=== PATIENT | male | born 2005 | race Two or more races ===

== ENCOUNTER 2025-08-27 09:17 | Inpatient (IN) | payer OTHER ==
[~2025-08-27] VITALS: Ht 175.3 cm; Wt 86.0 kg
[2025-08-27] MEDS: ONDANSETRON HCL 4 MG/2 ML VIAL IV ONE (10:13)
[2025-08-27] MEDS: FAMOTIDINE (10MG/ML) 2ML VL IV ONE (10:13)
[2025-08-27] MEDS: MORPHINE SULFATE 4 MG/ML SYR/VIAL IV ONE (10:14)
[2025-08-27] MEDS: SODIUM CHLORIDE 0.9% 1,000 ML IV ONE (10:15)
[2025-08-27 10:26] LABS: Hematocrit 43.4 % (41.0-53.0); Hemoglobin 15.4 g/dL (13.5-17.5); Mean Corpuscular Hemoglobin 31.0 pg (28.0-32.0); Mean Corpuscular Volume 87.5 fL (80.0-100.0); Nucleated Red Blood Cells % 0.0 %
--- NOTE | 2025-08-27 10:33 | ED.PDOC ---
History of Present Illness HPI Comments 20-year-old male brought in by [facility] for the chief complaint of and abdominal pain. Patient originally went to the [facility], give him having left-sided abdominal pain associated with N/V at 1900 yesterday. At the [facility] [place] the patient had a CT scan which shows that the patient does have a small partial bowel obstruction, for which the patient was transferred to [facility]. Denies any other symptoms at this time. Denies chills, fever, /D, SOB, CP. No other associated symptoms, modifiers, recent injuries or sick contacts present at this time. Chief Complaint: Abdominal Pain Time Seen by MD: 09:30 Reviewed Notes: Nurses Notes, Medications, Allergies Allergies: Coded Allergies: NO KNOWN ALLERGIES (Unverified , 08/27/25) Information Source: Patient Mode of Arrival: EMS Severity: Moderate Timing: Hours Duration: Since onset, Hours Prehospital treatment: None Past Medical History PAST MEDICAL HISTORY: Denies Surgical History: Denies all surgeries Family History Family History: Reviewed,noncontributory to illness, Unknown Social History Smoker: Non-Smoker Alcohol: Denies ETOH Use Drugs: Denies Drug Use Lives In: Home Constitutional: denies: chills, diaphoresis, fatigue, fever, malaise, sweats, weakness, others EENTM: denies: blurred vision, double vision, ear bleeding, ear discharge, ear drainage, ear pain, ear ringing, eye pain, eye redness, hearing loss, mouth pain, mouth swelling, nasal discharge, nose bleeding, nose congestion, nose pain, photophobia, tearing, throat pain, throat swelling, voice changes, others Respiratory: denies: cough, hemoptysis, orthopnea, SOB at rest, shortness of breath, SOB with excertion, stridor, wheezing, others Cardiovascular: denies: chest pain, dizzy spells, diaphoresis, Dyspnea on exertion, edema, irregular heart beat, left arm pain, lightheadedness, palpitations, PND, syncope, others Gastrointestinal: reports: abdominal pain, nausea, vomiting; denies: abdomen distended, blood streaked bowels, constipated, diarrhea, dysphagia, difficulty swallowing, hematemesis, melena, poor appetite, poor fluid intake, rectal bleeding, rectal pain, others Genitourinary: denies: burning, dysuria, flank pain, frequency, hematuria, incontinence, penile discharge, penile sore, pain, testicle pain, testicle swelling, urgency, others Neurological: denies: dizziness, fainting, headache, left sided numbness, left sided weakness, numbness, paresthesia, pre-existing deficit, right sided numbness, right sided weakness, seizure, speech problems, tingling, tremors, weakness, others Musculoskeletal: denies: back pain, gout, joint pain, joint swelling, muscle pain, muscle stiffness, neck pain, others Integumetry: denies: bruises, change in color, change in hair/nails, dryness, laceration, lesions, lumps, rash, wounds, others Allergic/Immunocompromised: denies: Difficulty Healing, Frequent Infections, Hives, Itching, others Hematologic/Lymphatic: denies: anemia, blood clots, easy bleeding, easy bruising, swollen glands, others Endocrine: denies: excessive hunger, excessive sweating, excessive thirst, excessive urination, flushing, intolerance to cold, intolerance to heat, unexplained weight gain, unexplained weight loss, others Psychiatric: denies: anxiety, bipolar disorder, depression, hopeless, panic disorder, schizophrenia, sleepless, suicidal, others All Other Systems: Reviewed and Negative Physical Exam Exam Comments Emesis, appears uncomfortable General Appearance: No Apparent Distress, Normal HEENT: Normal ENT Inspection, Pharynx Normal, TMs Normal Neck: Full Range of Motion, Non-Tender, Normal, Normal Inspection Respiratory: Chest Non-Tender, Lungs Clear, No Accessory Muscle Use, No Respiratory Distress, Normal Breath Sounds Cardiovascular: No Edema, No JVD, No Murmur, No Gallop, Normal Peripheral Pulses, Regular Rate/Rhythm Breast Exam: Deferred Gastrointestinal: No Organomegaly, Non Tender, No Pulsatile Mass, Normal Bowel Sounds, Soft Genitalia: Deferred Pelvic: Deferred Rectal: Deferred Extremities: No calf tenderness, Normal capillary refill, Normal inspection, Normal range of motion, Non-tender, No pedal edema Musculoskeletal : Apperance: Normal Neurologic: Alert, cardiograph operator II-XII nml as Tested, No Motor Deficits, Normal Affect, Normal Mood, No Sensory Deficits Cerebellar Function: Normal Reflexes: Normal Skin: Dry, Normal Color, Warm Lymphatic: No Adenopathy Was a procedure done? Was a procedure done?: No Differential Dx Considerations may include: See MDM X-Ray, Labs, Meds, VS Vital Signs Date Time Temp Pulse Resp B/P (MAP) Pulse Ox O2 Delivery O2 Flow Rate FiO2 08/27/25 10:14 85 16 120/80 08/27/25 10:00 Room Air* 0 21 08/27/25 10:00 98.2 88 14 120/80 (93) 94 98.2 08/27/25 09:22 97.7 81 17 132/78 96 97.7 Lab Test 08/27/25 09:57 Range/Units White Blood Count 8.9 4.4-10.8 10^3/uL Red Blood Count 4.96 4.5-5.90 10^6/uL Hemoglobin 15.4 13.5-17.5 g/dL Hematocrit 43.4 41.0-53.0 % Mean Corpuscular Volume 87.5 80.0-100.0 fL Mean Corpuscular Hemoglobin 31.0 28.0-32.0 pg Mean Corpuscular Hemoglobin Concent 35.4 32.0-36.0 g/dL Red Cell Distribution Width 13.0 11.8-14.3 % Platelet Count 213 140-450 10^3/uL Mean Platelet Volume 8.4 6.9-10.8 fL Neutrophils (%) (Auto) 85.0 H 37.0-80.0 % Lymphocytes (%) (Auto) 9.5 L 10.0-50.0 % Monocytes (%) (Auto) 5.4 0.0-12.0 % Eosinophils (%) (Auto) 0.0 0.0-7.0 % Basophils (%) (Auto) 0.1 0.0-2.0 % Neutrophils # (Auto) 7.5 1.6-8.6 10 ^3/uL Lymphocytes # (Auto) 0.8 0.4-5.4 10 ^3/uL Monocytes # (Auto) 0.5 0-1.3 10 ^3/uL Eosinophils # (Auto) 0 0-0.8 10 ^3/uL Basophils # (Auto) 0 0-0.2 10 ^3/uL Nucleated Red Blood Cells 0.0 % Sodium Level 141 136-145 mmol/L Potassium Level 4.2 3.5-5.1 mmol/L Chloride Level 105 98-107 mmol/L Carbon Dioxide Level 25 20-31 mmol/L Anion Gap 11 5-15 Blood Urea Nitrogen 8 L 9-23 mg/dL Creatinine 1.01 0.700-1.30 mg/dL Glomerular Filtration Rate Calc 109 >90 mL/min BUN/Creatinine Ratio 7.9 L 10.0-20.0 Serum Glucose 93 74-106 mg/dL Calcium Level 9.1 8.7-10.4 mg/dL Total Bilirubin 1.0 0.2-1.0 mg/dL Aspartate Amino Transferase (AST) 19 13-40 U/L Alanine Aminotransferase (ALT) 18 7-40 U/L Alkaline Phosphatase 63 46-116 U/L Total Protein 6.9 5.7-8.2 g/dL Albumin 4.2 3.2-4.8 g/dL Lipase 44 12-53 U/L Current Medications Medications (Trade) Dose Ordered Sig/Audi Route Start Time Stop Time Status Last Admin Sodium Chloride 1,000 ml @ 1,000 mls/hr Q1H ONCE IV 08/27/25 10:00 08/27/25 10:59 DC 08/27/25 10:15 Morphine Sulfate 4 mg ONCE ONCE IV 08/27/25 10:00 08/27/25 10:01 DC 08/27/25 10:14 Ondansetron HCl (Zofran) 4 mg ONCE ONCE IV 08/27/25 10:00 08/27/25 10:01 DC 08/27/25 10:13 Famotidine (Pepcid Injection) 20 mg ONCE ONCE IV 08/27/25 10:00 08/27/25 10:01 DC 08/27/25 10:13 Lorazepam (Ativan Inj) 1 mg ONCE ONCE IV 08/27/25 11:30 08/27/25 11:31 DC 08/27/25 11:31 Time of 1ST Reevaluation: 10:00 Reevaluation 1ST: Unchanged Patient Education/Counseling: Diagnosis, Treatment, Prognosis Family Education/Counseling: No Family Present Additional Information Medical Decision Making: A 20-year-old previously healthy male presents as a transfer from [facility] for a confirmed small bowel obstruction (SBO) on CT. He arrives with intractable vomiting, persistent abdominal pain, and inability to tolerate oral intake. SBO carries significant risk for bowel ischemia, perforation, sepsis, shock, and aspiration, making this a potentially life-threatening condition r equiring urgent management. Differential diagnosis included: mechanical SBO, closed-loop obstruction, early ischemic bowel, ileus, appendiceal pathology, internal hernia, and perforated viscus. Workup: CBC: benign; no leukocytosis. BMP: benign; no electrolyte abnormalities or NIRANJAN despite ongoing vomiting. CXR: benign; also used to confirm NG placement and evaluate for pneumope ritoneum. Serial vitals monitored; patient remained hemodynamically stable but at high risk of deterioration due to obstruction and ongoing fluid losses. ED Course / Treatment: NG tube placed emergently with immediate decompression of gastric contents. Treated with multiple IV morphine doses for severe abdominal pain. Given IV Zofran for persistent nausea. Initiated aggressive IV fluid resuscitation to address volume losses from emesis and third-spacing. Serial abdominal exams performed to monitor for worsening distention, guarding, rebound, or peritoneal signs suggestive of ischemia. Continuous monitoring for tachycardia, hypotension, reduced urine output, and aspiration risk. Consultations: General Surgery consulted immediately upon arrival; they agreed with ED management and will follow the patient upon admission for potential operative intervention. Risk Assessment: The diagnosis of small bowel obstruction represents a high-risk condition with likelihood of rapid clinical deterioration. The patient required critical interventions including NG decompression, IV opioid analgesia, antiemetics, and fluid resuscitation. Given the life-threatening potential of bowel ischemia or perforation, and the need for surgical evaluation, this encounter involved high- complexity medical decision-making (29084). Critical Care The patient required critical care due to a high probability of imminent, life- threatening deterioration from a small bowel obstruction, with associated risks of shock, bowel ischemia, perforation, electrolyte derangements, and aspiration. Critical care activities included: Serial abdominal examinations assessing for peritonitis or ischemia Placement and management of NG tube with decompression Management of intractable vomiting and aspiration risk Ordering, reviewing, and interpreting diagnostic studies Fluid resuscitation for volume loss IV opioid administration and reassessment Coordination with General Surgery regarding advanced management Frequent reassessment and monitoring for decompensation Counseling patient/family regarding condition and potential need for emergent surgery A total of 38 minutes of critical care time was provided, exclusive of separately billable procedures. SEPSIS Sepsis Screen Date sepsis recognized/suspect: Aug 27, 2025 Time Sepsis recognized/suspect: 915 Recent Procedure: No On Antibiotic Therapy: No Respiratory Rate >20: No Heart Rate >90: No Temp<36 C (96.8 F) or >38.3 C: No SBP <90 or MAP <65 mmHG: No New Acute Mental Status Change: No Is the patient on CPAP, BIPAP,: No Physician Orders Ng To Lis (08/27/25 09:47) Place Ng (08/27/25 09:47) * Surgical Consult (08/27/25 ) Chest Xray 1 View (08/27/25 11:16) Vital Signs Date Time Temp Pulse Resp B/P (MAP) Pulse Ox O2 Delivery O2 Flow Rate FiO2 08/27/25 10:14 85 16 120/80 08/27/25 10:00 Room Air* 0 21 08/27/25 10:00 98.2 88 14 120/80 (93) 94 98.2 08/27/25 09:22 97.7 81 17 132/78 96 97.7 Laboratory Tests Test 08/27/25 09:57 White Blood Count 8.9 10^3/uL (4.4-10.8) Medications Medications Dose Ordered Sig/Audi Route Start Time Stop Time Status Last Admin Dose Admin Famotidine 20 mg ONCE ONCE IV 08/27/25 10:00 08/27/25 10:01 DC 08/27/25 10:13 Lorazepam 1 mg ONCE ONCE IV 08/27/25 11:30 08/27/25 11:31 DC 08/27/25 11:31 Morphine Sulfate 4 mg ONCE ONCE IV 08/27/25 10:00 08/27/25 10:01 DC 08/27/25 10:14 Ondansetron HCl 4 mg ONCE ONCE IV 08/27/25 10:00 08/27/25 10:01 DC 08/27/25 10:13 Sodium Chloride 1,000 ml @ 1,000 mls/hr Q1H ONCE IV 08/27/25 10:00 08/27/25 10:59 DC 08/27/25 10:15 Departure 1 Departure Time of Disposition: 12:50 Impression: Primary Impression: SBO (small bowel obstruction) Additional Impressions: Intractable abdominal pain Nausea and vomiting Disposition: ADMITTED INPATIENT Admit to: [facility] Condition: Guarded Critical Care Note Critical Care Time?: Yes Stability Stability form required: No I personally scribed for JULIO COPE MD ([email or web address]) on 08/27/25 at 10:33. Electronically submitted by Jesus Mosley ([email or web address]). JULIO COPE MD Aug 27, 2025 10:33
[2025-08-27 10:45] LABS: Alanine Aminotransferase 18 U/L (7-40); Albumin 4.2 g/dL (3.2-4.8); Alkaline Phosphatase 63 U/L (46-116); Anion Gap 11 (5-15); BUN/Creatinine Ratio 7.9 (10.0-20.0); Bilirubin, Total 1.0 mg/dL (0.2-1.0); Calcium 9.1 mg/dL (8.7-10.4); Carbon Dioxide 25 mmol/L (20-31); Chloride 105 mmol/L (98-107); Glucose 93 mg/dL (74-106); Potassium 4.2 mmol/L (3.5-5.1); Sodium 141 mmol/L (136-145); Total Protein 6.9 g/dL (5.7-8.2)
[2025-08-27 10:49] LABS: Blood Urea Nitrogen 8 mg/dL (9-23)
[2025-08-27 11:21] LABS: Lipase 44 U/L (12-53)
[2025-08-27] MEDS: LORazepam 2MG/ML-1ML VIAL IV ONE (11:31)
--- NOTE | 2025-08-27 11:53 | DVH ---
XY CHEST XRAY 1 VIEW, HISTORY: GTUBE PLACEMENT COMPARISON: None None TECHNICAL DATA: 1 view of the chest was obtained. FINDINGS: Lines and tubes: Enteric tube in the distal esophagus. Cardiomediastinal silhouette: normal Pulmonary vasculature: normal Lung expansion: normal Lung airspace: normal Lung interstitium: normal Pleura: normal Pneumothorax: no Bones: Unremarkable Other: no IMPRESSION: No acute intrathoracic abnormality. Enteric tube in the distal esophagus.
[2025-08-27 13:20] VITALS: PULSE 98; RESP 15; O2SAT 95
--- NOTE | 2025-08-27 13:45 | DVHHP2 ---
Admitting Diagnosis: Small-bowel obstruction History of Present Illness 20-year-old male brought in by [facility] for the chief complaint of and abdominal pain. Patient originally went to the [facility], give him having left-sided abdominal pain associated with N/V at 1900 yesterday. At the [facility] the patient had a CT scan which shows that the patient does have a small partial bowel obstruction, for which the patient was transferred to [facility]. Denies any other symptoms at this time. Denies chills, fever, /D, SOB, CP. No other associated symptoms, modifiers, recent injuries or sick contacts present at this time. PAST MEDICAL HISTORY: Denies Surgical History: Denies all surgeries Family History Family History: Reviewed,noncontributory to illness, Unknown Social History Smoker: Non-Smoker Alcohol: Denies ETOH Use Drugs: Denies Drug Use Lives In: Home Allergies: Coded Allergies: NO KNOWN ALLERGIES (Unverified , 08/27/25) Current Medications Current Medications Medications (Trade) Dose Ordered Sig/Audi Route PRN Reason Start Time Stop Time Status Last Admin Sodium Chloride (Saline Lock Ns) 10 ml Q8HR IV 08/27/25 14:00 08/27/25 14:03 Docusate Sodium (Colace Capsule) 100 mg BIDPRN PRN PO FOR CONSTIPATION 08/27/25 14:00 Acetaminophen (Tylenol Tablet) 650 mg Q6HP PRN PO PAIN SCALE 1-3 OR TEMP>100.4 08/27/25 14:00 Acetaminophen/ Hydrocodone Bitart (Bethel 5/325MG Tab) 1 tab Q4HP PRN PO MODERATE PAIN (4-6 PAIN SCALE) 08/27/25 14:00 Hydromorphone HCl (Dilaudid Injection) 0.5 mg Q4HP PRN IV SEVERE PAIN (7-10 PAIN SCALE) 08/27/25 14:00 Ondansetron HCl (Zofran) 4 mg Q4HP PRN IV NAUSEA / VOMITING 08/27/25 14:00 Enoxaparin Sodium (Lovenox) 40 mg DAILY SC 08/28/25 10:00 Pantoprazole Sodium (Protonix) 40 mg DAILY IV 08/28/25 10:00 Vital Signs Vital Signs Date Time Temp Pulse Resp B/P (MAP) Pulse Ox O2 Delivery O2 Flow Rate FiO2 08/27/25 10:14 85 16 120/80 08/27/25 10:00 Room Air* 0 21 08/27/25 10:00 98.2 94 98.2 Physical Exam Generally-20 years old male, well nourished well developed. No apparent distress HEENT-atraumatic normocephalic Heart-regular rate and rhythm Lungs clear to auscultate Abdomen Soft mild tender epigastrium, nondistended Musculoskeletal-no edema cyanosis Neuro-AO three, no focal deficits SEPSIS Sepsis Screen Date sepsis recognized/suspect: Aug 27, 2025 Time Sepsis recognized/suspect: 1000 Recent Procedure: No On Antibiotic Therapy: No Respiratory Rate >20: No Heart Rate >90: No Temp<36 C (96.8 F) or >38.3 C: No SBP <90 or MAP <65 mmHG: No New Acute Mental Status Change: No Is the patient on CPAP, BIPAP,: No Physician Orders Ng To Lis (08/27/25 09:47) Place Ng (08/27/25 09:47) * Surgical Consult (08/27/25 ) Chest Xray 1 View (08/27/25 11:16) Lactated Ringer's (08/27/25 13:45) Admit (08/27/25 13:46) Code Status (08/27/25 13:46) Vital Signs .PER UNIT PROTOCOL (08/27/25 13:46) Review Orders With Adm. (08/27/25 13:46) Encourage Activity As Tolerate (08/27/25 13:46) Npo (Nothing By Mouth) Diet (08/27/25 Dinner) Sodium Chloride Lock (Saline Lock Ns) (08/27/25 14:00) Docusate Sodium Capsule (Colace Capsule) (08/27/25 14:00) Acetaminophen Tablet (Tylenol Tablet) (08/27/25 14:00) Notify Md Of Changes From Base (08/27/25 13:46) Advance Directive (08/27/25 13:46) Patient Condition (08/27/25 13:46) Allergies (08/27/25 13:46) Hydrocodone-Acet 5/325mg Tab (Bethel 5/32 (08/27/25 14:00) Hydromorphone Injection (Dilaudid Inject (08/27/25 14:00) Ondansetron Hcl (Zofran) (08/27/25 14:00) Enoxaparin Sodium (Lovenox) (08/28/25 10:00) Pantoprazole (Protonix) (08/28/25 10:00) Vital Signs Date Time Temp Pulse Resp B/P (MAP) Pulse Ox O2 Delivery O2 Flow Rate FiO2 08/27/25 10:14 85 16 120/80 08/27/25 10:00 Room Air* 0 21 08/27/25 10:00 98.2 88 14 120/80 (93) 94 98.2 08/27/25 09:22 97.7 81 17 132/78 96 97.7 Laboratory Tests Test 08/27/25 09:57 White Blood Count 8.9 10^3/uL (4.4-10.8) Medications Medications Dose Ordered Sig/Audi Route Start Time Stop Time Status Last Admin Dose Admin Famotidine 20 mg ONCE ONCE IV 08/27/25 10:00 08/27/25 10:01 DC 08/27/25 10:13 Lorazepam 1 mg ONCE ONCE IV 08/27/25 11:30 08/27/25 11:31 DC 08/27/25 11:31 Morphine Sulfate 4 mg ONCE ONCE IV 08/27/25 10:00 08/27/25 10:01 DC 08/27/25 10:14 Ondansetron HCl 4 mg ONCE ONCE IV 08/27/25 10:00 08/27/25 10:01 DC 08/27/25 10:13 Sodium Chloride 10 ml Q8HR IV 08/27/25 14:00 08/27/25 14:03 Sodium Chloride 1,000 ml @ 1,000 mls/hr Q1H ONCE IV 08/27/25 10:00 08/27/25 10:59 DC 08/27/25 10:15 Results Labs Test 08/27/25 09:57 Range/Units White Blood Count 8.9 4.4-10.8 10^3/uL Red Blood Count 4.96 4.5-5.90 10^6/uL Hemoglobin 15.4 13.5-17.5 g/dL Hematocrit 43.4 41.0-53.0 % Mean Corpuscular Volume 87.5 80.0-100.0 fL Mean Corpuscular Hemoglobin 31.0 28.0-32.0 pg Mean Corpuscular Hemoglobin Concent 35.4 32.0-36.0 g/dL Red Cell Distribution Width 13.0 11.8-14.3 % Platelet Count 213 140-450 10^3/uL Mean Platelet Volume 8.4 6.9-10.8 fL Neutrophils (%) (Auto) 85.0 H 37.0-80.0 % Lymphocytes (%) (Auto) 9.5 L 10.0-50.0 % Monocytes (%) (Auto) 5.4 0.0-12.0 % Eosinophils (%) (Auto) 0.0 0.0-7.0 % Basophils (%) (Auto) 0.1 0.0-2.0 % Neutrophils # (Auto) 7.5 1.6-8.6 10 ^3/uL Lymphocytes # (Auto) 0.8 0.4-5.4 10 ^3/uL Monocytes # (Auto) 0.5 0-1.3 10 ^3/uL Eosinophils # (Auto) 0 0-0.8 10 ^3/uL Basophils # (Auto) 0 0-0.2 10 ^3/uL Nucleated Red Blood Cells 0.0 % Sodium Level 141 136-145 mmol/L Potassium Level 4.2 3.5-5.1 mmol/L Chloride Level 105 98-107 mmol/L Carbon Dioxide Level 25 20-31 mmol/L Anion Gap 11 5-15 Blood Urea Nitrogen 8 L 9-23 mg/dL Creatinine 1.01 0.700-1.30 mg/dL Glomerular Filtration Rate Calc 109 >90 mL/min BUN/Creatinine Ratio 7.9 L 10.0-20.0 Serum Glucose 93 74-106 mg/dL Calcium Level 9.1 8.7-10.4 mg/dL Total Bilirubin 1.0 0.2-1.0 mg/dL Aspartate Amino Transferase (AST) 19 13-40 U/L Alanine Aminotransferase (ALT) 18 7-40 U/L Alkaline Phosphatase 63 46-116 U/L Total Protein 6.9 5.7-8.2 g/dL Albumin 4.2 3.2-4.8 g/dL Lipase 44 12-53 U/L Primary Diagnosis Small-bowel obstruction Plan Patient was found to have some bowel obstruction NPO NG tube to intermittent suction Surgery consult IV fluids Antiemetics Pain control Monitor for bowel movement Full code Lovenox for DVT prophylaxis PPI GI prophylaxis needed Plan discussed with: Patient Problems List: (1) SBO (small bowel obstruction) Status: Acute (2) Nausea and vomiting Status: Acute Date of Service: Aug 27, 2025 Billing Provider: KARTHIK JORGE MD Common Visit Codes: [id number] INP/OBS CARE (HIGH) KARTHIK JORGE MD Aug 27, 2025 13:45
[2025-08-27] MEDS ORDERED: DOCUSATE SOD 100 MG CAP PO PRN (14:00)
[2025-08-27] MEDS: SODIUM CHLOR 0.9% PF (SALINE LOCK) 10ML VIAL/SYR IV SCH (14:03)
--- NOTE | 2025-08-27 14:55 | DVH ---
XY KUB ABDOMEN SINGLE VIEW HISTORY: assess for sbo TECHNICAL DATA: 1 view of the abdomen. COMPARISON: None FINDINGS: Patchy gas is identified within nondistended small bowel. There are no dilated small bowel loops. There is no abdominal mass effect. The renal and liver shadows are not enlarged. Limited exam due to contrast in bladder. IMPRESSION: Enteric tube not seen. No dilated bowel loops seen.
[2025-08-27] MEDS: LACTATED RINGER'S 1,000 ML IV ONE (16:16)
[2025-08-27] MEDS: ONDANSETRON HCL 4 MG/2 ML VIAL IV PRN (16:40)
[2025-08-27] MEDS: HYDROmorphone HCL 2 MG/ML VL/or syr IV PRN (16:41)
--- NOTE | 2025-08-27 19:17 | DVHINCON2 ---
Consultation - Surgical Date Seen: Aug 28, 2025 Referring Physician Reason for Consultation Partial SBO History of Present Illness History of Present Illness Mr. Garcia is a 20-year-old male who was transferred from an outside hospital due to a diagnosis of enterocolitis causing a partial SBO. Patient has been having abdominal pain since associated with nausea and vomiting. Last vomiting episode yesterday, patient had a bowel movement yesterday at 10:30 p.m. and stated it was large. Patient is still complaining of the left side abdominal pain which is crampy and sharp in nature. He has never had this before. Denies fevers, chills, blood in the stool or any GI pathology. Denies weight loss or loss of appetite Past Medical/Surgical History Past Medical/Surgical History Denies past medical and past surgical history Family and Social History Family and Social History Family history noncontributory ETOH/T Ob/drugs denies Allergies and medications Allergies: Coded Allergies: NO KNOWN ALLERGIES (Unverified , 08/27/25) Home Meds No Active Prescriptions or Reported Meds Review of systems Review of Systems: Deferred Examination Vital signs Vital Signs Date Time Temp Pulse Resp B/P (MAP) Pulse Ox O2 Delivery O2 Flow Rate FiO2 08/27/25 19:00 92 16 136/93 (107) 96 08/27/25 16:00 98.4 98.4 08/27/25 13:20 Room Air* 0 21 Medications Current Medications Medications (Trade) Dose Ordered Sig/Audi Route PRN Reason Start Time Stop Time Status Last Admin Sodium Chloride (Saline Lock Ns) 10 ml Q8HR IV 08/27/25 14:00 08/27/25 14:03 Docusate Sodium (Colace Capsule) 100 mg BIDPRN PRN PO FOR CONSTIPATION 08/27/25 14:00 Acetaminophen (Tylenol Tablet) 650 mg Q6HP PRN PO PAIN SCALE 1-3 OR TEMP>100.4 08/27/25 14:00 Acetaminophen/ Hydrocodone Bitart ([place] 5/325MG Tab) 1 tab Q4HP PRN PO MODERATE PAIN (4-6 PAIN SCALE) 08/27/25 14:00 Hydromorphone HCl (Dilaudid Injection) 0.5 mg Q4HP PRN IV SEVERE PAIN (7-10 PAIN SCALE) 08/27/25 14:00 08/27/25 16:41 Ondansetron HCl (Zofran) 4 mg Q4HP PRN IV NAUSEA / VOMITING 08/27/25 14:00 08/27/25 16:40 Enoxaparin Sodium (Lovenox) 40 mg DAILY SC 08/28/25 10:00 Pantoprazole Sodium (Protonix) 40 mg DAILY IV 08/28/25 10:00 Laboratory Labs Test 08/27/25 09:57 Range/Units White Blood Count 8.9 4.4-10.8 10^3/uL Red Blood Count 4.96 4.5-5.90 10^6/uL Hemoglobin 15.4 13.5-17.5 g/dL Hematocrit 43.4 41.0-53.0 % Mean Corpuscular Volume 87.5 80.0-100.0 fL Mean Corpuscular Hemoglobin 31.0 28.0-32.0 pg Mean Corpuscular Hemoglobin Concent 35.4 32.0-36.0 g/dL Red Cell Distribution Width 13.0 11.8-14.3 % Platelet Count 213 140-450 10^3/uL Mean Platelet Volume 8.4 6.9-10.8 fL Neutrophils (%) (Auto) 85.0 H 37.0-80.0 % Lymphocytes (%) (Auto) 9.5 L 10.0-50.0 % Monocytes (%) (Auto) 5.4 0.0-12.0 % Eosinophils (%) (Auto) 0.0 0.0-7.0 % Basophils (%) (Auto) 0.1 0.0-2.0 % Neutrophils # (Auto) 7.5 1.6-8.6 10 ^3/uL Lymphocytes # (Auto) 0.8 0.4-5.4 10 ^3/uL Monocytes # (Auto) 0.5 0-1.3 10 ^3/uL Eosinophils # (Auto) 0 0-0.8 10 ^3/uL Basophils # (Auto) 0 0-0.2 10 ^3/uL Nucleated Red Blood Cells 0.0 % Sodium Level 141 136-145 mmol/L Potassium Level 4.2 3.5-5.1 mmol/L Chloride Level 105 98-107 mmol/L Carbon Dioxide Level 25 20-31 mmol/L Anion Gap 11 5-15 Blood Urea Nitrogen 8 L 9-23 mg/dL Creatinine 1.01 0.700-1.30 mg/dL Glomerular Filtration Rate Calc 109 >90 mL/min BUN/Creatinine Ratio 7.9 L 10.0-20.0 Serum Glucose 93 74-106 mg/dL Calcium Level 9.1 8.7-10.4 mg/dL Total Bilirubin 1.0 0.2-1.0 mg/dL Aspartate Amino Transferase (AST) 19 13-40 U/L Alanine Aminotransferase (ALT) 18 7-40 U/L Alkaline Phosphatase 63 46-116 U/L Total Protein 6.9 5.7-8.2 g/dL Albumin 4.2 3.2-4.8 g/dL Lipase 44 12-53 U/L Examination: GENERAL:Abnormal (In pain, alert awake and oriented x3), HEENT:Normal (No icterus, neck supple), LUNGS:Normal (Nonlabored breathing with symmetric expansion), ABDOMEN:Abnormal (Flat, no scars, no hernias, soft, depressible, right-sided abdominal tenderness no rebound no guarding), SKIN:Normal (No jaundice) Problem List/Assessment/Plan Problems: (1) Intractable abdominal pain Assessment and Plan Mr. Garcia is a 20-year-old male who was transferred from an outside hospital with a diagnosis of enterocolitis causing a partial SBO. I reviewed the CT images and it shows terminal ileitis with small amount of pelvic free fluid, patient also has diverticulosis throughout the sigmoid and descending colon without evidence of diverticulitis. Patient has some distended loops of bowel but likely due to the ongoing enteritis. Patient has not had anymore vomiting episodes and had a bowel movement on Thursday night before coming to our hospital, and it was large. 1. Recommend course of the IV antibiotics 2. Okay for liquid diet 3. Pain and nausea control Plan discussed with Plan discussed with: Patient Visit Coding Surgery Date of Service if different f: Aug 28, 2025 Billing Provider: TAYLER STONE MD Surgery Visit Codes: [id number] - INP CONSULT <110 MIN TAYLER STONE MD Aug 27, 2025 19:17
[2025-08-27 19:25] VITALS: PULSE 88; RESP 18; O2SAT 96
[2025-08-27] MEDS: HYDROcodone-ACET 5/325MG TAB PO PRN (21:59)
[2025-08-28] VITALS (7 sets, daily range): BP systolic 113–130; BP diastolic 71–80; PULSE 60–89; RESP 16–19; TEMP 97.8–98.6; O2SAT 94–98
[2025-08-28 08:00] LABS: Hematocrit 40.7 % (41.0-53.0); Hemoglobin 14.5 g/dL (13.5-17.5); Mean Corpuscular Hemoglobin 31.3 pg (28.0-32.0); Mean Corpuscular Volume 87.9 fL (80.0-100.0); Nucleated Red Blood Cells % 0.0 %
[2025-08-28 08:13] LABS: Alanine Aminotransferase 16 U/L (7-40); Albumin 4.0 g/dL (3.2-4.8); Alkaline Phosphatase 55 U/L (46-116); Anion Gap 10 (5-15); BUN/Creatinine Ratio 9.3 (10.0-20.0); Blood Urea Nitrogen 10 mg/dL (9-23); Calcium 9.2 mg/dL (8.7-10.4); Carbon Dioxide 28 mmol/L (20-31); Chloride 103 mmol/L (98-107); Glucose 83 mg/dL (74-106); Potassium 3.9 mmol/L (3.5-5.1); Sodium 141 mmol/L (136-145); Total Protein 6.4 g/dL (5.7-8.2)
[2025-08-28 08:14] LABS: Bilirubin, Total 1.4 mg/dL (0.2-1.0)
[2025-08-28] MEDS: PANTOPRAZOLE 40 MG/10 ML VIAL INJ IV SCH (09:57)
[2025-08-28] MEDS ORDERED: ENOXAPARIN SOD 40 MG/0.4 ML SYRINGE SC SCH (10:00)
--- NOTE | 2025-08-28 13:41 | DVHPN2 ---
Progress Note Date Seen: Aug 28, 2025 Medical Necessity Reason Pt with a Central, PICC or Fol: No Subjective Patient reports: No new complaints Review of Systems: HEENT:Normal, CVS:Normal, RESPIRATORY:Normal, GI:Normal, :Normal, MSK:Normal, NEURO:Normal Objective vital signs Vital Sign Date Time Temp Pulse Resp B/P (MAP) Pulse Ox O2 Delivery O2 Flow Rate FiO2 08/28/25 04:59 98.3 79 16 113/71 (85) 98 98.3 08/28/25 03:40 Room Air* 0 21 Total Intake and Output 08/27/25 08/27/25 08/28/25 15:00 23:00 07:00 Intake Total 200 ml Balance 200 ml medications Current Medications Medications Dose Ordered Sig/Audi Route Start Time Stop Time Status Last Admin Dose Admin Sodium Chloride 10 ml Q8HR IV 08/27/25 14:00 08/28/25 06:00 10 ML Docusate Sodium 100 mg BIDPRN PRN PO 08/27/25 14:00 Acetaminophen 650 mg Q6HP PRN PO 08/27/25 14:00 Acetaminophen/ Hydrocodone Bitart 1 tab Q4HP PRN PO 08/27/25 14:00 08/27/25 21:59 1 TAB Hydromorphone HCl 0.5 mg Q4HP PRN IV 08/27/25 14:00 08/27/25 16:41 0.5 MG Ondansetron HCl 4 mg Q4HP PRN IV 08/27/25 14:00 08/27/25 16:40 4 MG Enoxaparin Sodium 40 mg DAILY SC 08/28/25 10:00 Pantoprazole Sodium 40 mg DAILY IV 08/28/25 10:00 08/28/25 09:57 40 MG Examination: GENERAL:Normal, HEENT:Normal, NECK:Normal, LUNGS:Normal, CVS:Normal, ABDOMEN:Normal, ABDOMEN:Abnormal (tender), MSK:Normal, SKIN:Normal, NEURO:Normal, :Normal laboratory and microbiology Laboratory Tests 08/28/25 07:11 Test 08/28/25 07:11 Range/Units Serum Glucose 83 74-106 mg/dL Problem List/Assessment/Plan Problem List/Assessment/Plan #1 abd pain ? sbo ?enterocolitis: ivf, pain meds, surg eval Plan discussed with: Patient My Orders My Orders Orders - NIKOLAY HANLEY MD Procedure Category Date Status Time Lactated Ringers Lr PHA 08/28/25 Verified 13:45 Urinalysis LAB 08/28/25 Uncollected 13:37 Date of Service: Aug 28, 2025 Billing Provider: NIKOLAY HANLEY MD Common Visit Codes: [id number] INP/OBS CARE(HIGH) NIKOLAY HANLEY MD Aug 28, 2025 13:41
[2025-08-28] MEDS: LACTATED RINGER'S 1,000 ML IV SCH (13:45)
[2025-08-28 18:47] LABS: Urine Protein, UAD Negative (Negative)
[2025-08-28] MEDS: ACETAMINOPHEN 325 MG TAB PO PRN (19:58)
[2025-08-29 06:14] LABS: Hematocrit 41.5 % (41.0-53.0); Hemoglobin 14.9 g/dL (13.5-17.5); Mean Corpuscular Hemoglobin 31.4 pg (28.0-32.0); Mean Corpuscular Volume 87.7 fL (80.0-100.0); Nucleated Red Blood Cells % 0.0 %
[2025-08-29 06:44] LABS: Alanine Aminotransferase 12 U/L (7-40); Albumin 4.1 g/dL (3.2-4.8); Alkaline Phosphatase 53 U/L (46-116); Anion Gap 11 (5-15); BUN/Creatinine Ratio 4.5 (10.0-20.0); Calcium 9.6 mg/dL (8.7-10.4); Carbon Dioxide 27 mmol/L (20-31); Chloride 105 mmol/L (98-107); Glucose 84 mg/dL (74-106); Potassium 4.3 mmol/L (3.5-5.1); Sodium 143 mmol/L (136-145); Total Protein 6.6 g/dL (5.7-8.2)
[2025-08-29 06:45] LABS: Bilirubin, Total 1.1 mg/dL (0.2-1.0)
[2025-08-29 06:51] LABS: Blood Urea Nitrogen 5 mg/dL (9-23)
[2025-08-29 08:00] VITALS: PULSE 78; RESP 16
[2025-08-29 09:00] VITALS: BP_SYST 118; BP_SYST 119; BP_DIAS 62; BP_DIAS 65; PULSE 64; PULSE 78; RESP 16; RESP 18; TEMP 98.4; TEMP 98.9; O2SAT 96
--- NOTE | 2025-08-29 10:43 | DVHPN2 ---
Progress Note Date Seen: Aug 29, 2025 Medical Necessity Reason Pt with a Central, PICC or Fol: No Subjective Patient reports: No new complaints Review of Systems: HEENT:Normal, CVS:Normal, RESPIRATORY:Normal, GI:Normal, :Normal, MSK:Normal, NEURO:Normal Objective vital signs Vital Sign Date Time Temp Pulse Resp B/P (MAP) Pulse Ox O2 Delivery O2 Flow Rate FiO2 08/28/25 21:00 97.9 78 19 123/80 (94) 96 97.9 08/28/25 20:00 Room Air* 0 21 Total Intake and Output 08/28/25 08/28/25 08/29/25 15:00 23:00 07:00 Intake Total 300 ml 1200 ml Balance 300 ml 1200 ml medications Current Medications Medications Dose Ordered Sig/Audi Route Start Time Stop Time Status Last Admin Dose Admin Sodium Chloride 10 ml Q8HR IV 08/27/25 14:00 08/29/25 05:30 10 ML Docusate Sodium 100 mg BIDPRN PRN PO 08/27/25 14:00 Acetaminophen 650 mg Q6HP PRN PO 08/27/25 14:00 08/28/25 19:58 650 MG Acetaminophen/ Hydrocodone Bitart 1 tab Q4HP PRN PO 08/27/25 14:00 08/28/25 15:36 1 TAB Hydromorphone HCl 0.5 mg Q4HP PRN IV 08/27/25 14:00 08/27/25 16:41 0.5 MG Ondansetron HCl 4 mg Q4HP PRN IV 08/27/25 14:00 08/27/25 16:40 4 MG Pantoprazole Sodium 40 mg DAILY IV 08/28/25 10:00 08/29/25 09:46 40 MG Lactated Ringer's 1,000 ml @ 100 mls/hr Q10H IV 08/28/25 13:45 08/29/25 09:56 100 MLS/HR Levofloxacin/ Dextrose 100 ml @ 100 mls/hr DAILY IV 08/29/25 10:00 08/29/25 09:46 100 MLS/HR Metronidazole 100 ml @ 100 mls/hr Q8HR IV 08/28/25 14:00 08/29/25 05:30 100 MLS/HR Examination: GENERAL:Normal, HEENT:Normal, NECK:Normal, LUNGS:Normal, CVS:Normal, ABDOMEN:Normal, MSK:Normal, SKIN:Normal, NEURO:Normal, :Normal laboratory and microbiology Laboratory Tests 08/29/25 05:33 Test 08/29/25 05:33 Range/Units Serum Glucose 84 74-106 mg/dL Problem List/Assessment/Plan Problem List/Assessment/Plan #1 abd pain ? sbo ?enterocolitis: ivf, pain meds, surg eval, advance diet Plan discussed with: Patient My Orders My Orders Orders - NIKOLAY HANLEY MD Procedure Category Date Status Time Lactated Ringer's PHA 08/28/25 In Process 13:45 Urinalysis LAB 08/28/25 Uncollected 13:37 Clear Liq Diet DIET 08/28/25 Transmitted Dinner Levofloxacin 500mg PHA 08/29/25 In Process (Levaquin 500mg/ 100m 10:00 Metronidazole PHA 08/28/25 In Process 500mg/100ml (Flagyl 14:00 Date of Service: Aug 29, 2025 Billing Provider: NIKOLAY HANLEY MD Common Visit Codes: [id number] INP/OBS CARE(HIGH) NIKOLAY HANLEY MD Aug 29, 2025 10:43
--- NOTE | 2025-08-29 11:17 | DVHPN2 ---
Progress Note - Surgical Date Seen: Aug 29, 2025 Post op day Post op day: 0 Subjective Review of Systems: Deferred Objective Vital signs Vital Sign Date Time Temp Pulse Resp B/P (MAP) Pulse Ox O2 Delivery O2 Flow Rate FiO2 08/29/25 08:00 78 16 Room Air* 0 21 08/28/25 21:00 97.9 123/80 (94) 96 97.9 Total Intake and Output 08/28/25 08/28/25 08/29/25 15:00 23:00 07:00 Intake Total 300 ml 1200 ml Balance 300 ml 1200 ml Medications Current Medications Medications Dose Ordered Sig/Audi Route Start Time Stop Time Status Last Admin Dose Admin Sodium Chloride 10 ml Q8HR IV 08/27/25 14:00 08/29/25 05:30 10 ML Docusate Sodium 100 mg BIDPRN PRN PO 08/27/25 14:00 Acetaminophen 650 mg Q6HP PRN PO 08/27/25 14:00 08/28/25 19:58 650 MG Acetaminophen/ Hydrocodone Bitart 1 tab Q4HP PRN PO 08/27/25 14:00 08/28/25 15:36 1 TAB Hydromorphone HCl 0.5 mg Q4HP PRN IV 08/27/25 14:00 08/27/25 16:41 0.5 MG Ondansetron HCl 4 mg Q4HP PRN IV 08/27/25 14:00 08/27/25 16:40 4 MG Pantoprazole Sodium 40 mg DAILY IV 08/28/25 10:00 08/29/25 09:46 40 MG Lactated Ringer's 1,000 ml @ 100 mls/hr Q10H IV 08/28/25 13:45 08/29/25 09:56 100 MLS/HR Levofloxacin/ Dextrose 100 ml @ 100 mls/hr DAILY IV 08/29/25 10:00 08/29/25 09:46 100 MLS/HR Metronidazole 100 ml @ 100 mls/hr Q8HR IV 08/28/25 14:00 08/29/25 05:30 100 MLS/HR Laboratory Laboratory Tests 08/29/25 05:33 Test 08/29/25 05:33 Range/Units Serum Glucose 84 74-106 mg/dL Examination: GENERAL:Normal (AAO x3), HEENT:Normal, LUNGS:Normal (Nonlabored breathing with symmetric expansion), ABDOMEN:Normal (Very mild distention, soft, depressible, nontender) Labs and/or images reviewed: Labs reviewed by me (No leukocytosis) Problem List/Assessment/Plan Problems: (1) Enteritis Assessment and Plan Mr. Garcia is a 20-year-old male who was transferred from an outside hospital with a diagnosis of enterocolitis causing a partial SBO. I reviewed the CT images and it shows terminal ileitis with small amount of pelvic free fluid, patient also has diverticulosis throughout the sigmoid and descending colon without evidence of diverticulitis. Patient has some distended loops of bowel but likely due to the ongoing enteritis. Patient has not had anymore vomiting episodes and had a bowel movement on Thursday night before coming to our hospital, and it was large. Interval: Patient was started on antibiotics yesterday and is feeling much better today. Pain has improved, no nausea, no vomiting tolerating clear liquid diet, no bowel movement. 1. Continue IV antibiotics 2. Continue liquid diet 3. Pain and nausea control Plan discussed with Plan discussed with: Patient Visit Coding Surgery Date of Service if different f: Aug 29, 2025 Billing Provider: TAYLER STONE MD Surgery Visit Codes: [id number] INP/OBS CARE(HIGH) TAYLER STONE MD Aug 29, 2025 11:16
[2025-08-29 13:00] VITALS: BP 104/51; PULSE 59; RESP 16; TEMP 98.8; O2SAT 98
[2025-08-29 16:51] VITALS: BP 137/82; PULSE 77; RESP 18; TEMP 98.7; O2SAT 96
[2025-08-29 21:00] VITALS: BP 126/76; PULSE 86; RESP 19; TEMP 98.6; O2SAT 96
[2025-08-30 01:00] VITALS: BP 112/57; PULSE 78; RESP 18; TEMP 98.3; O2SAT 96
[2025-08-30 05:00] VITALS: BP 115/60; PULSE 74; RESP 17; TEMP 98.1; O2SAT 95
--- NOTE | 2025-08-30 05:14 | DVH ---
Exam: XY KUB ABDOMEN SINGLE VIEW Indication: abd pain Comparison: XY KUB ABDOMEN SINGLE VIEW on DOS: 08/27/25 Technique: 2 radiographic views of the abdomen. Findings: Nonspecific bowel-gas pattern. There is no definite evidence for pneumoperitoneum. No abnormal calcifications noted. Impression: Nonspecific bowel-gas pattern
[2025-08-30 08:00] VITALS: PULSE 69; RESP 18
[2025-08-30 09:00] VITALS: BP 113/69; PULSE 69; RESP 18; TEMP 98; O2SAT 97
--- NOTE | 2025-08-30 10:46 | DVHDS2 ---
Discharge Summary Date of Admission Aug 27, 2025 at 13:46 Date of Discharge: Aug 30, 2025 Labs/Diagnostic Data: Laboratory Results Test 08/29/25 05:33 08/28/25 18:25 08/27/25 09:57 White Blood Count 6.1 10^3/uL (4.4-10.8) Red Blood Count 4.74 10^6/uL (4.5-5.90) Hemoglobin 14.9 g/dL (13.5-17.5) Hematocrit 41.5 % (41.0-53.0) Mean Corpuscular Volume 87.7 fL (80.0-100.0) Mean Corpuscular Hemoglobin 31.4 pg (28.0-32.0) Mean Corpuscular Hemoglobin Concent 35.8 g/dL (32.0-36.0) Red Cell Distribution Width 13.0 % (11.8-14.3) Platelet Count 189 10^3/uL (140-450) Mean Platelet Volume 8.3 fL (6.9-10.8) Neutrophils (%) (Auto) 59.4 % (37.0-80.0) Lymphocytes (%) (Auto) 27.8 % (10.0-50.0) Monocytes (%) (Auto) 9.3 % (0.0-12.0) Eosinophils (%) (Auto) 2.8 % (0.0-7.0) Basophils (%) (Auto) 0.7 % (0.0-2.0) Neutrophils # (Auto) 3.6 10 ^3/uL (1.6-8.6) Lymphocytes # (Auto) 1.7 10 ^3/uL (0.4-5.4) Monocytes # (Auto) 0.6 10 ^3/uL (0-1.3) Eosinophils # (Auto) 0.2 10 ^3/uL (0-0.8) Basophils # (Auto) 0 10 ^3/uL (0-0.2) Nucleated Red Blood Cells 0.0 % Sodium Level 143 mmol/L (136-145) Potassium Level 4.3 mmol/L (3.5-5.1) Chloride Level 105 mmol/L (98-107) Carbon Dioxide Level 27 mmol/L (20-31) Anion Gap 11 (5-15) Blood Urea Nitrogen 5 mg/dL (9-23) Creatinine 1.10 mg/dL (0.700-1.30) Glomerular Filtration Rate Calc 98 mL/min (>90) BUN/Creatinine Ratio 4.5 (10.0-20.0) Serum Glucose 84 mg/dL (74-106) Calcium Level 9.6 mg/dL (8.7-10.4) Total Bilirubin 1.1 mg/dL (0.2-1.0) Aspartate Amino Transferase (AST) 14 U/L (13-40) Alanine Aminotransferase (ALT) 12 U/L (7-40) Alkaline Phosphatase 53 U/L (46-116) Total Protein 6.6 g/dL (5.7-8.2) Albumin 4.1 g/dL (3.2-4.8) Urine Color Colorless (Yellow) Urine Clarity Clear (Clear) Urine pH 8.0 (5.0-9.0) Urine Specific Peck 1.004 (1.001-1.035) Urine Protein Negative (Negative) Urine Ketones Negative (Negative) Urine Blood Negative /uL (Negative) Urine Nitrite Negative (Negative) Urine Bilirubin Negative (Negative) Urine Urobilinogen Normal mg/dL (Negative) Urine Leukocyte Esterase Negative /uL (Negative) Urine RBC <1 /hpf (0 - 3) Urine Microscopic WBC /HPF (0-3) Urine Squamous Epithelial Cells None seen /hpf (<5) Urine Bacteria None seen /hpf (None Seen) Urine Glucose Normal mg/dL (Normal) Lipase 44 U/L (12-53) Other Laboratory Tests 08/29/25 05:33 Brief Hx & Hospital Course: see dictated note Condition at Discharge: Good Final Diagnosis/Problems List abd pain Discharge Disposition: Home Discharge Instruct/Medications Diet: Regular Activity: No Restrictions, As Tolerated Follow Up/Referral: fu with pcp in 1 wk Medications: script in chart No Active Prescriptions or Reported Meds Discharge Statement: "Patient was advised to return to the ER or call 911 if any headaches, dizziness, shortness of breath, chest pain, abdominal pain, bleeding, fevers, or worsening of medical condition. Patient was counseled about treatment plan, medications, possible side effects, patientverbalized understanding. All questions were answered to the best of my ability. This discharge took greater then 30 minutes in planning, reviewing documentation, counseling the patient, and discussing with other team members." ASSESSMENT ASSESSMENT Assessment abd pain Date of Service: Aug 30, 2025 Billing Provider: NIKOLAY HANLEY MD Common Visit Codes: [id number] DISCH DAY >30min NIKOLAY HANLEY MD Aug 30, 2025 10:46
--- NOTE | 2025-08-30 10:57 | DVHDS ---
DATE OF DISCHARGE: 08/30/2025 HISTORY OF PRESENT ILLNESS: The patient is a 20-year-old gentleman who was transferred from [facility] with left-sided abdominal pain accompanied by nausea and vomiting. HOSPITAL COURSE: The patient was seen in Surgery consult by Dr. Hanks. The patient was noted to have likely acute enterocolitis and terminal ileitis. The patient was placed on IV antibiotics. His symptoms have since improved and he has had bowel activity and is tolerating an old diet. The patient will now be discharged home to be on Levaquin 500 mg daily for 7 days and Flagyl 500 mg t.i.d. for 7 days. He will follow up with his primary in 1 week. FINAL DIAGNOSES: Therefore: * Abdominal pain likely secondary to acute enterocolitis. Time spent in discharge planning and review of plan with the patient and nursing was 37 minutes. MD BECKY Lao/ALPHONSE TID: [id number] RECEIPT: [id number]
[2025-08-30 11:46] VITALS: BP 113/69; PULSE 69; RESP 18; TEMP 98; O2SAT 97
--- NOTE | 2025-08-30 12:29 | DVHPN2 ---
Progress Note - Surgical Date Seen: Aug 30, 2025 Post op day Post op day: 0 Subjective Patient reports: Feels better (Patient feeling better today, tolerated full liquid diet yesterday, no nausea, no vomiting had 5 bowel movements, he is afebrile with vital stable.) Review of Systems: Deferred Objective Vital signs Vital Sign Date Time Temp Pulse Resp B/P (MAP) Pulse Ox O2 Delivery O2 Flow Rate FiO2 08/30/25 11:46 98.0 69 18 97 08/30/25 09:00 113/69 (84) 08/30/25 08:00 Room Air* 0 21 Total Intake and Output 08/29/25 08/29/25 08/30/25 15:00 23:00 07:00 Intake Total 100 ml 1550 ml 300 ml Output Total 3 ml Balance 100 ml 1547 ml 300 ml Medications Current Medications Medications Dose Ordered Sig/Audi Route Start Time Stop Time Status Last Admin Dose Admin Sodium Chloride 10 ml Q8HR IV 08/27/25 14:00 08/30/25 05:53 10 ML Docusate Sodium 100 mg BIDPRN PRN PO 08/27/25 14:00 Acetaminophen 650 mg Q6HP PRN PO 08/27/25 14:00 08/28/25 19:58 650 MG Acetaminophen/ Hydrocodone Bitart 1 tab Q4HP PRN PO 08/27/25 14:00 08/29/25 19:47 1 TAB Hydromorphone HCl 0.5 mg Q4HP PRN IV 08/27/25 14:00 08/27/25 16:41 0.5 MG Ondansetron HCl 4 mg Q4HP PRN IV 08/27/25 14:00 08/27/25 16:40 4 MG Pantoprazole Sodium 40 mg DAILY IV 08/28/25 10:00 08/30/25 10:57 40 MG Lactated Ringer's 1,000 ml @ 100 mls/hr Q10H IV 08/28/25 13:45 08/29/25 21:15 100 MLS/HR Levofloxacin/ Dextrose 100 ml @ 100 mls/hr DAILY IV 08/29/25 10:00 08/30/25 10:57 100 MLS/HR Metronidazole 100 ml @ 100 mls/hr Q8HR IV 08/28/25 14:00 11/19/25 05:53 100 MLS/HR Laboratory Laboratory Tests 08/29/25 05:33 Test 08/29/25 05:33 Range/Units Serum Glucose 84 74-106 mg/dL Examination: GENERAL:Normal (A a O x3), LUNGS:Normal (Nonlabored breathing with symmetric expansion), ABDOMEN:Normal (Nondistended, soft, depressible, nontender) Labs and/or images reviewed: Labs reviewed by me (Labs completely within normal limits) Problem List/Assessment/Plan Assessment and Plan Mr. Garcia is a 20-year-old male who was transferred from an outside hospital with a diagnosis of enterocolitis causing a partial SBO. I reviewed the CT images and it shows terminal ileitis with small amount of pelvic free fluid, patient also has diverticulosis throughout the sigmoid and descending colon without evidence of diverticulitis. Patient has some distended loops of bowel but likely due to the ongoing enteritis. Patient has not had anymore vomiting episodes and had a bowel movement on Thursday night before coming to our hospital, and it was large. Interval: Patient doing well today, had 5 bowel movements, tolerated full liquid diet. Patient cleared for discharge per surgical standpoint. 1. Cleared for discharge per surgical standpoint 2. Continue with p.o. course of antibiotics Plan discussed with Plan discussed with: Patient Visit Coding Surgery Date of Service if different f: Aug 30, 2025 Billing Provider: TAYLER STONE MD Surgery Visit Codes: [id number] INP/OBS CARE(HIGH) TAYLER STONE MD Aug 30, 2025 12:29
== END 2025-08-30 13:55 | disposition home or self-care (01) | DRG 392 ==
LOC: ER 09:17 → EDBD 09:17 → OVERFLOW 13:46 → WEST WING 08-28 16:06
PROVIDERS: ADMIT Internal Medicine; ATTEND Internal Medicine
DX: K52.9 Noninfective gastroenteritis and colitis, unspecified (principal); K50.012 Crohn's disease of small intestine with intestinal obstruction; K57.30 Diverticulosis of large intestine without perforation or abscess without bleeding; Z79.899 Other long term (current) drug therapy
CPT/HCPCS: 36415; 71045; 74018; 80053; 81001; 83690; 85025; 96361; 96374; 96375; G0378; J1956; J2405; J2470; J3490